=== PATIENT | female | born 1935 ===

== ENCOUNTER 2021-06-21 02:19 | Emergency (ER) | payer MEDICARE, BC ==
[~2021-06-21] VITALS: Ht 160 cm; Wt 54.4 kg
--- NOTE | 2021-06-21 02:52 | NUR ---
MD Carcamo in room to do MSE.
[2021-06-21] MEDS ORDERED: LIDOCAINE HCL 2% 20 ML VIAL IJ ONE (03:00)
[2021-06-21] MEDS ORDERED: LIDOCAINE HCL 2% 20 ML VIAL ONE (03:09)
[2021-06-21] MEDS ORDERED: NEOMY/BACITRA/POLYMYXIN B OINT UD PACKET TP ONE (03:34)
[2021-06-21] MEDS ORDERED: BACITRACIN ZINC OINT 15 GM TUBE TOP STA (03:51)
[2021-06-21] MEDS ORDERED: BACITRACIN ZINC OINT 15 GM TUBE ONE (04:01)
--- NOTE | 2021-06-21 04:06 | NUR ---
Patient is resting comfortably in bed with eyes closed, no acute distressed noted.
--- NOTE | 2021-06-21 05:08 | NUR ---
Patient discharged to home in stable condition. Written and verbal after care instructions given. Patient verbalizes understanding of instructions. Stressed follow up or return to ER for worsening s/s. Pt out of ER via wheelchair, VSS, no acute signs of distress, all belongings taken, assisted patient on transfer from chair to car, no falls noted, to be driven home by daughter via private vehicle.
[2021-06-21 05:10] VITALS: BP 105/62
== END 2021-06-21 05:11 | disposition home or self-care (01) ==
LOC: ER 02:22
DX: S81.012A Laceration without foreign body, left knee, initial encounter (principal); W18.39XA Other fall on same level, initial encounter; Y92.032 Bedroom in apartment as the place of occurrence of the external cause; R25.1 Tremor, unspecified; G47.00 Insomnia, unspecified; Z85.810 Personal history of malignant neoplasm of tongue; Z85.72 Personal history of non-Hodgkin lymphomas; Z92.3 Personal history of irradiation
CPT/HCPCS: 12005; 99282; J3490; A4217; A4663